=== PATIENT | female | born 1965 | race Caucasian/White ===

== ENCOUNTER 2017-09-21 11:47 | Emergency (ER) | payer OTHER ==
[~2017-09-21] VITALS: Ht 154.9 cm; Wt 61.7 kg
[2017-09-21 11:52] VITALS: BP_SYST 115
[2017-09-21] MEDS ORDERED: KETOROLAC TROMETHAMINE 60 MG/2 ML VIAL IM ONE (12:15)
[2017-09-21 13:28] VITALS: BP_SYST 113
== END 2017-09-21 13:28 | disposition home or self-care (01) ==
LOC: SED 11:47
DX: S76.012A Strain of muscle, fascia and tendon of left hip, initial encounter (principal); I10 Essential (primary) hypertension; F41.9 Anxiety disorder, unspecified; Z85.3 Personal history of malignant neoplasm of breast; Z90.710 Acquired absence of both cervix and uterus; X58.XXXA Exposure to other specified factors, initial encounter; Y93.89 Activity, other specified; Y92.89 Other specified places as the place of occurrence of the external cause; Y99.8 Other external cause status
CPT/HCPCS: 72170; 73502; 96372; 99284; J1885

== ENCOUNTER 2020-04-01 17:52 | Emergency (ER) | payer OTHER ==
[~2020-04-01] VITALS: Ht 167.6 cm; Wt 72.6 kg
[2020-04-01 17:52] VITALS: BP_SYST 141
--- NOTE | 2020-04-01 18:03 | NUR ---
TRIAGED IN AMBULANCE [facility], PLACED IN [facility]
--- NOTE | 2020-04-01 18:10 | NUR ---
ER at bedside examining patient.
[2020-04-01] MEDS ORDERED: NACL 0.9% 1,000 ML IV ONE (18:15)
--- NOTE | 2020-04-01 18:36 | NUR ---
SENT TO CT OF HEAD
--- NOTE | 2020-04-01 18:37 | NUR ---
TRANSFERED TO BED 2
--- NOTE | 2020-04-01 18:40 | NUR ---
PT. GREGG CC ALOC PT. FAMILY CALLED 911 SAID PT. WAS ALTERED AND NOT ACTIN GCORRECTLY SUSPECTS ALCOHOL USE, PT. IS ALERT ADN ORIENTED AND SPEAKING CLEARLY PT DENIES LACOHOL USE AND ANY SUBSTANCE ABUSE PT SITING UP IN BED COMPLAINING OF DIZZINESS BUT DENIES SOB CP OR ANY KIN DOF PAIN. PT HAS HISTORY OF BREAST CANCER NO KNOWN ALLERGIES PT. IN BED RESTING QUIETLY
--- NOTE | 2020-04-01 19:09 | NUR ---
PT 02 SATURATION AT 91% ON ROOM AIR MD RAMIREZ NOTIFIED AND PT PLACE DON 2 LPM VAI NASAL CANNULA TO IMPROVE PT TO 96% OXYGEN SATURATION
[2020-04-01 19:49] LABS: BASOPHILS % (AUTO) 0.3 % (0.0-2.0); EOSINOPHILS % (AUTO) 0.1 % (0.0-4.0); HEMATOCRIT 35.3 % (36-48); HEMOGLOBIN 12.1 g/dL (12.0-16.0); LYMPHOCYTES # (AUTO) 0.9 K/uL (1.0-5.5); MEAN CORPUSCULAR HEMOGLOBIN 32 pg (27-31); MEAN CORPUSCULAR HGB CONC 34 % (32-36); MEAN CORPUSCULAR VOLUME 94 fL (79.0-98.0); MONOCYTES % (AUTO) 5.5 % (1.7-9.3); NEUTROPHILS # (AUTO) 15.6 K/uL (1.8-7.7); NEUTROPHILS % (AUTO) 89.1 % (40.0-70.0); PLATELET COUNT (AUTO) 213 K/uL (130-430); RED BLOOD CELL COUNT(AUTO) 3.76 MIL/uL (4.2-6.2); RED CELL DISTRIBUTION WIDTH 13.6 % (9.0-15.0); WHITE BLOOD COUNT (AUTO) 17.6 K/uL (4.8-10.8)
--- NOTE | 2020-04-01 19:50 | NUR ---
PT. URIEL TO SEIZE FOR APPROXIMATELY 2-3 MINUTES MD WHELAN NOTIFIED AND PRESENT AT BEDSIDE PT. PALCED ON 15LPM NON REBREATHER PT. POSITIONED ON LEFT SIDE AND SIEZURE PADS APPLIED TO BEDRAILS
[2020-04-01] MEDS ORDERED: LORazepam 2 MG/ML VIAL ONE (19:51)
[2020-04-01 20:01] LABS: ANION GAP 5 (5-15); CALCIUM 8.5 mg/dL (8.4-11.0); CHLORIDE 103 mmol/L (98-107); CREATININE 1.17 mg/dL (0.55-1.30); GLUCOSE 135 mg/dL (70-99); SODIUM SERUM 136 mmol/L (136-145); UREA NITROGEN, BLOOD 6 mg/dL (8-21)
[2020-04-01 20:04] LABS: GFR AFRICAN AMERICAN 62 mL/min (>90); POTASSIUM 2.8 mmol/L (3.5-5.1)
[2020-04-01 20:15] LABS: ALANINE AMINOTRANSFERASE 32 U/L (12-78); ALBUMIN 3.2 g/dL (3.4-4.8); ASPARTATE AMINOTRANSFERASE 45 U/L (10-37); TOTAL BILIRUBIN 0.2 mg/dL (0.0-1.0)
[2020-04-01] MEDS ORDERED: LORazepam 2 MG/ML VIAL IVP ONE (20:15)
[2020-04-01] MEDS ORDERED: KCL 20 mEq in 100 mL (PREMIX) 100 ML IV ONE ×2 (20:15→21:56)
[2020-04-01 20:18] LABS: ACETAMINOPHEN < 1 ug/mL (1-30); ALCOHOL, BLOOD < 3 mg/dL (<10)
--- NOTE | 2020-04-01 20:30 | NUR ---
PT IN POST ICTAL PHASE ALERT AND RESPONSIVE IN BED RESTING QUIETLY IN NO DISTRESS
--- NOTE | 2020-04-01 20:31 | NUR ---
PT INTERVIEWED NOW THAT SHE IS ALERT AND RESPONSIVE PT DENIES A HISTORY OF SEIZURES
[2020-04-01 20:32] LABS: BARBITURATE, URINE NEGATIVE (NEG <=200); BENZODIAZEPINE, URINE NEGATIVE (NEG <=150); CANNABINOID, URINE POSITIVE (NEG <=50); COCAINE, URINE NEGATIVE (NEG <=150); METHAMPHETAMINES SCREEN,URINE NEGATIVE (NEG <=500); OPIATE, URINE NEGATIVE (NEG <=100); PHENCYCLIDINE SCREEN,URINE NEGATIVE (NEG <=25); UR TRICYCLIC ANTIDEPRESSANTS POSITIVE (NEG <=300); URINE AMPHETAMINE NEGATIVE (NEG <=500); URINE METHADONE NEGATIVE (NEG <=200); URINE OXYCODONE SCREEN NEGATIVE (NEG <=100); URINE PROPOXYPHENE SCREEN NEGATIVE (NEG <=300)
--- NOTE | 2020-04-01 20:33 | NUR ---
BEDSIDE COVID NARES SWAB PERFORMED PT TOLERATED WELL SAMPLE SENT TO LAB
--- NOTE | 2020-04-01 20:43 | NUR ---
PORTABLE CHEST XRAY PERFOMRED AT BEDSIDE
[2020-04-01] MEDS ORDERED: cefTRIAXone 1 GM in D5W 50 ML IV ONE (21:00)
[2020-04-01] MEDS ORDERED: VANCOMYCIN HCL 1,000 MG in NS 250 ML IV ONE (21:00)
--- NOTE | 2020-04-01 21:30 | NUR ---
PT. RESTING QUIETLY IN BED ALERT AND ORIENTED ON 15LPM NON REBREATHER MASK SATURATING AT 98%
[2020-04-01] MEDS ORDERED: cefTRIAXone 1 GM VIAL ONE (21:31)
[2020-04-01 21:33] LABS: BILIRUBIN,URINE NEGATIVE (NEGATIVE); BLOOD, URINE NEGATIVE (NEGATIVE); CLARITY/URINE CLEAR (CLEAR); COLOR,URINE YELLOW (YELLOW); GLUCOSE,URINE TRACE (NEGATIVE); KETONES,URINE NEGATIVE (NEGATIVE); LEUKOCYTE ESTERASE ,URINE NEGATIVE (NEGATIVE); NITRITE, URINE NEGATIVE (NEGATIVE); PROTEIN URINE NEGATIVE (NEGATIVE); UROBILINOGEN,URINE 0.2 (0.2-1.0)
[2020-04-01] MEDS ORDERED: VANCOMYCIN HCL 1000 MG/VIAL IV ONE (21:41)
--- NOTE | 2020-04-01 21:49 | NUR ---
PT. FEELING NAUSEOUS AND ACTIVELY VOMITING MD WHELAN AWARE
[2020-04-01] MEDS ORDERED: ONDANSETRON HCL 4 MG/2 ML VIAL IVP ONE (22:00)
--- NOTE | 2020-04-01 22:20 | NUR ---
PT RESTING QUIETLY IN BED PT DENIES DISTRESS, NAUSEA, SOB, AND PAIN WILL CONINTUE TO CYNDEE
[2020-04-01] MEDS ORDERED: ACETAMINOPHEN 500 MG TABLET ONE (22:42)
[2020-04-01] MEDS ORDERED: ACETAMINOPHEN 500 MG TABLET PO ONE (22:45)
--- NOTE | 2020-04-02 00:48 | NUR ---
LAB AT BEDSIDE REDRAWING
--- NOTE | 2020-04-02 00:55 | NUR ---
PT. RESTING QUIETLY IN BED IN NO DISTRESS NO PAIN AWAITING TELE BED PLACEMENT Addendum: 04/02/20 at 0057 by [email or web address] PT. RESTING QUIETLY DENIES PAIN AND DENIES DISTRESS
--- NOTE | 2020-04-02 02:23 | NUR ---
PT RESTING QUIETLY IN BED ALERT AND ORIENTED PT. DENIES PAIN AND IN NO DISTRESS
--- NOTE | 2020-04-02 03:15 | NUR ---
BEDSIDE REPORT GIVEN TO BILLET HEATERJOE JOYA WHO WILL ASSUME CARE
--- NOTE | 2020-04-02 03:15 | NUR ---
ASSUMED CARE OF PT WHO IS SLEEPING IN NO DISTRESS
--- NOTE | 2020-04-02 04:09 | NUR ---
Pt to CT scan by wheelchair
--- NOTE | 2020-04-02 04:43 | NUR ---
PT BACK FROM CT SCAN AND REATTACHED TO MONITORS
--- NOTE | 2020-04-02 05:00 | NUR ---
REPORT GIVEN TO JOE SUÁREZ WHO WILL ASSUME CARE OF PT
--- NOTE | 2020-04-02 07:15 | NUR ---
Assumed care of patient, report received from JOE Reyes. Pt currently resting in bed, no distress noted.
--- NOTE | 2020-04-02 07:30 | NUR ---
Breakfast tray requested for patient
[2020-04-02 11:51] VITALS: BP_SYST 100
--- NOTE | 2020-04-02 11:52 | NUR ---
Patient to be transferred to [facility]. Is being transferred due to higher level of care. Receiving facility has accepting physician and available space. ER physician has signed transfer form. Patient or responsible green party has agreed to transfer and signed form. Patient belongings inventoried and will be sent with patient. Copy of nursing notes, lab reports, EKG, Physicians Orders and X-rays to be sent with patient. Report called to JOE aZman at receiving facility. Receiving physician is Dr. Sevilla. [facility] ambulance service has been called for transfer. ETA is 12:00.
--- NOTE | 2020-04-02 11:57 | NUR ---
Notified pt's Cedrick of pt's transfer to [facility].
== END 2020-04-02 11:51 | disposition short-term general hospital (02) ==
LOC: SED 17:52
DX: S09.90XA Unspecified injury of head, initial encounter (principal); A41.9 Sepsis, unspecified organism; R65.20 Severe sepsis without septic shock; J18.9 Pneumonia, unspecified organism; G40.909 Epilepsy, unspecified, not intractable, without status epilepticus; I10 Essential (primary) hypertension; F41.9 Anxiety disorder, unspecified; Z85.3 Personal history of malignant neoplasm of breast; Z20.828 Contact with and (suspected) exposure to other viral communicable diseases; W18.09XA Striking against other object with subsequent fall, initial encounter; Y93.89 Activity, other specified; Y92.89 Other specified places as the place of occurrence of the external cause; Y99.8 Other external cause status
CPT/HCPCS: 36415; 70450; 71045; 71250; 72125; 76376 ×2; 80053; 80307; 81003; 83605; 84132; 85025; 85379; 87040; 87426; 93005; 96361; 96365; 96366; 96368; 96375; 99285; G0480; G0481; G0482; J0696; J2060; J2405; J3370; J3480; J7030